=== PATIENT | female | born 1975 | race Caucasian/White ===

== ENCOUNTER 2017-03-05 21:03 | Emergency (ER) | payer MEDICAID ==
[~2017-03-05] VITALS: Ht 160 cm; Wt 74.8 kg
[2017-03-05 22:06] LABS: BILIRUBIN,URINE NEGATIVE (NEG); GLUCOSE,URINE NEGATIVE (NEG); NITRITE,URINE NEGATIVE (NEG); PROTEIN,URINE NEGATIVE (NEG-TRACE)
[2017-03-05 22:15] LABS: BACTERIA,URINE MOD /HPF (0-FEW); RBC,URINE 0 /HPF (0-2); SQUAMOUS EPITHELIAL CELL,UR MANY /LPF
[2017-03-05] MEDS ORDERED: IV NORMAL SALINE 1000ML BAG 1,000 ML IV SCH (22:15)
[2017-03-05] MEDS ORDERED: fentaNYL PF VIAL 100 MCG/2 ML VIAL IV PRN (22:15)
[2017-03-05] MEDS ORDERED: ONDANSETRON PF 4 MG/2 ML VIAL. IV ONE (22:30)
[2017-03-05] MEDS ORDERED: HALOPERIDOL LACTATE 5 MG/ML VIAL. IVP ONE (22:30)
[2017-03-05 23:00] LABS: BASO # 0.1 x10^3/uL (0.0-0.2); BASO % 1 % (0-3); EOS % 2 % (0-3); HEMATOCRIT 42.6 % (36.0-47.0); HEMOGLOBIN 14.6 g/dL (12.0-15.5); LYMPH # 1.8 x10^3/uL (1.0-4.8); LYMPH % 22 % (24-48); MEAN CORPUSCULAR HEMOGLOBIN 32 pg (25-35); MEAN CORPUSCULAR HGB CONC 34 g/dL (31-37); MEAN CORPUSCULAR VOLUME 92 fL (79-100); MONO % 8 % (0-9); NEUT % 67 % (31-73); PLATELET COUNT 473 x10^3/uL (140-400); RED BLOOD COUNT 4.64 x10^6/uL (3.50-5.40); RED CELL DISTRIBUTION WIDTH 13.5 % (11.5-14.5)
[2017-03-05 23:08] LABS: CALCIUM 9.4 mg/dL (8.5-10.1); CREATININE 0.6 mg/dL (0.6-1.0); GFR 109.1; POTASSIUM 3.7 mmol/L (3.5-5.1)
[2017-03-05 23:14] LABS: ALBUMIN 3.4 g/dL (3.4-5.0); ALBUMIN/GLOBULIN RATIO 0.9 (1.0-1.7); TOTAL BILIRUBIN 0.6 mg/dL (0.2-1.0); TOTAL PROTEIN 7.2 g/dL (6.4-8.2)
[2017-03-05 23:38] LABS: BARBITURATES NEG (NEG); BENZODIAZEPINES NEG (NEG); CANNABINOIDS NEG (NEG); COCAINE NEG (NEG); METHADONE NEG (NEG); OPIATES POS (NEG); PHENCYCLIDINE NEG (NEG)
--- NOTE | 2017-03-06 00:01 | ED.ADGEN ---
Past Medical History Past Medical History: Bipolar, Hepatitis, Other Additional Past Medical Histor: hep c, onset schizophrenia, ptsd,dgd, osteoarthritis, back pain Past Surgical History: Hysterectomy, Other Additional Past Surgical Histo: back, carpal tunnel Alcohol Use: None Drug Use: None Adult General Chief Complaint Chief Complaint: MULTIPLE COMPLAINTS HPI HPI Patient is a 41 year old woman history of hepatitis C, schizophrenia, bipolar disorder, who presents to the emergency department with a complaint of abdominal pain, nausea and vomiting. Patient was evaluated at [facility] on 03/01 , and had an ultrasound and CT performed of the abdomen that were unremarkable, she then had a EGD performed today which did not reveal evidence of concerning findings. Per the paperwork the patient has with her in the ED, it was recommended the patient obtain a HIDA scan for additional evaluation for functional issues with her gallbladder, as no mechanical issues were identified. Patient states that she has been feeling persistently nauseous and complaining of abdominal cramping, denies any fevers or chills, any urinary complaints, any injuries, any focal weakness, numbness, tingling, rashes, swelling of the extremities. She states that she was trying to take the medications given to her by the GI doctor, including Haldol, and Zofran, with oxycodone without relief at home. Review of Systems Review of Systems Constitutional: Denies fever or chills. [] Eyes: Denies change in visual acuity. [] HENT: Denies nasal congestion or sore throat. [] Respiratory: Denies cough or shortness of breath. [] Cardiovascular: Denies chest pain or edema. [] GI: Cramping and sharp upper abdominal pain, nausea, vomiting, diarrhea, no bloody stools. : Denies dysuria. [] Musculoskeletal: Denies back pain or joint pain. [] Integument: Denies rash. [] Neurologic: Denies headache, focal weakness or sensory changes. [] Endocrine: Denies polyuria or polydipsia. [] Lymphatic: Denies swollen glands. [] Psychiatric: Denies depression or anxiety. [] Current Medications Current Medications Current Medications Medications (Trade) Dose Ordered Sig/Terrell Start Time Stop Time Status Last Admin Dose Admin Fentanyl Citrate (Fentanyl 2ml Vial) 50 mcg PRN Q15MIN PRN 03/05/17 22:15 03/06/17 22:14 03/05/17 22:43 50 MCG Haloperidol Lactate (Haldol) 5 mg 1X ONCE 03/05/17 22:30 03/05/17 22:31 DC 03/05/17 22:44 5 MG Ondansetron HCl (Zofran) 4 mg 1X ONCE 03/05/17 22:30 03/05/17 22:31 DC 03/05/17 22:44 4 MG Sodium Chloride 1,000 ml @ 1,000 mls/hr Q1H 03/05/17 22:15 03/05/17 23:14 DC 03/05/17 22:44 1,000 MLS/HR Allergies Allergies Allergies Coded Allergies Type Severity Reaction Last Updated Verified Penicillins Allergy Intermediate 03/05/17 Yes Sulfa (Sulfonamide Antibiotics) Allergy Intermediate 03/05/17 Yes acetaminophen Allergy Intermediate 03/05/17 Yes azithromycin Allergy Intermediate 03/05/17 Yes buspirone Allergy Intermediate 03/05/17 Yes hydrocodone Allergy Intermediate 03/05/17 Yes ibuprofen Allergy Intermediate 03/05/17 Yes ketorolac Allergy Intermediate 03/05/17 Yes lamotrigine Allergy Intermediate 03/05/17 Yes nitrofurantoin Allergy Intermediate 03/05/17 Yes tramadol Allergy Intermediate 03/05/17 Yes Physical Exam Physical Exam Constitutional: Well developed, well nourished, no acute distress, non-toxic appearance. [] HENT: Normocephalic, atraumatic, bilateral external ears normal, oropharynx moist, no oral exudates, nose normal. [] Eyes: PERRLA, EOMI, conjunctiva normal, no discharge. [] Neck: Normal range of motion, no tenderness, supple, no stridor. [] Cardiovascular:Heart rate regular rhythm, no murmur, S1, S2, no rubs or gallops. [] Lungs & Thorax: Bilateral breath sounds clear to auscultation, no wheezing, rhonchi, rales. No chest crepitus or tenderness. [] Abdomen: Bowel sounds normal, soft, mild tenderness to palpation in the epigastric region, no rebound, rigidity, no guarding, no masses, no pulsatile masses. [] Skin: Warm, dry, no erythema, no rash. [] Back: No tenderness, no CVA tenderness. [] Extremities: No tenderness, no cyanosis, no clubbing, ROM intact, no edema. Negative Homans sign. [] Neurologic: Alert and oriented X 3, normal motor function, normal sensory function, no focal deficits noted. [] Psychologic: Affect normal, judgement normal, mood normal. [] Current Patient Data Vital Signs Vital Signs Date Time Temp Pulse Resp B/P (MAP) Pulse Ox O2 Delivery O2 Flow Rate FiO2 03/05/17 22:43 18 96 Room Air 03/05/17 21:24 71 120/78 (92) Lab Values Laboratory Tests Test 03/05/17 21:42 03/05/17 22:40 Urine Collection Type Unknown Urine Color Noa Urine Clarity Cloudy Urine pH 6.0 Urine Specific [place] 1.020 Urine Protein Negative mg/dL (NEG-TRACE) Urine Glucose (UA) Negative mg/dL (NEG) Urine Ketones (Stick) Negative mg/dL (NEG) Urine Blood Negative (NEG) Urine Nitrite Negative (NEG) Urine Bilirubin Negative (NEG) Urine Urobilinogen Dipstick 1.0 mg/dL (0.2 mg/dL) Urine Leukocyte Esterase Small (NEG) Urine RBC 0 /HPF (0-2) Urine WBC 1-4 /HPF (0-4) Urine Squamous Epithelial Cells Many /LPF Urine Bacteria Mod /HPF (0-FEW) Urine Mucus Marked /LPF Urine Opiates Screen Pos (NEG) Urine Methadone Screen Neg (NEG) Urine Barbiturates Neg (NEG) Urine Phencyclidine Screen Neg (NEG) Urine Amphetamine/Methamphetamine Neg (NEG) Urine Benzodiazepines Screen Neg (NEG) Urine Cocaine Screen Neg (NEG) Urine Cannabinoids Screen Neg (NEG) Urine Ethyl Alcohol Neg (NEG) White Blood Count 8.0 x10^3/uL (4.0-11.0) Red Blood Count 4.64 x10^6/uL (3.50-5.40) Hemoglobin 14.6 g/dL (12.0-15.5) Hematocrit 42.6 % (36.0-47.0) Mean Corpuscular Volume 92 fL (79-100) Mean Corpuscular Hemoglobin 32 pg (25-35) Mean Corpuscular Hemoglobin Concent 34 g/dL (31-37) Red Cell Distribution Width 13.5 % (11.5-14.5) Platelet Count 473 x10^3/uL (140-400) H Neutrophils (%) (Auto) 67 % (31-73) Lymphocytes (%) (Auto) 22 % (24-48) L Monocytes (%) (Auto) 8 % (0-9) Eosinophils (%) (Auto) 2 % (0-3) Basophils (%) (Auto) 1 % (0-3) Neutrophils # (Auto) 5.3 x10^3uL (1.8-7.7) Lymphocytes # (Auto) 1.8 x10^3/uL (1.0-4.8) Monocytes # (Auto) 0.7 x10^3/uL (0.0-1.1) Eosinophils # (Auto) 0.2 x10^3/uL (0.0-0.7) Basophils # (Auto) 0.1 x10^3/uL (0.0-0.2) Sodium Level 140 mmol/L (136-145) Potassium Level 3.7 mmol/L (3.5-5.1) Chloride Level 103 mmol/L (98-107) Carbon Dioxide Level 29 mmol/L (21-32) Anion Gap 8 (6-14) Blood Urea Nitrogen 8 mg/dL (7-20) Creatinine 0.6 mg/dL (0.6-1.0) Estimated GFR (Cockcroft-Gault) 109.1 BUN/Creatinine Ratio 13 (6-20) Glucose Level 92 mg/dL (70-99) Calcium Level 9.4 mg/dL (8.5-10.1) Total Bilirubin 0.6 mg/dL (0.2-1.0) Aspartate Amino Transferase (AST) 47 U/L (15-37) H Alanine Aminotransferase (ALT) 67 U/L (14-59) H Alkaline Phosphatase 75 U/L (46-116) Total Protein 7.2 g/dL (6.4-8.2) Albumin 3.4 g/dL (3.4-5.0) Albumin/Globulin Ratio 0.9 (1.0-1.7) L Lipase 76 U/L (73-393) Laboratory Tests 03/05/17 22:40 Laboratory Tests 03/05/17 22:40 EKG EKG Not indicated. Radiology/Procedures Radiology/Procedures Acute abdominal series: 3 view: Normal cardiopulmonary silhouette, no infiltrates, no effusions, no pneumothorax, no free air, no bony or soft tissue abnormality identified. Patient was stool and bowel gas throughout, no evidence of obstruction, no air-fluid levels or other concerning findings. As interpreted by me. Course & Med Decision Making Course & Med Decision Making Pertinent Labs and Imaging studies reviewed. (See chart for details) As stated, patient has evidence of a thorough GI evaluation that was performed within the last several days at [facility], doubt identification of concerning findings. Due to patient's complaints, with upper GI that was performed today, obstruction series was obtained which showed no evidence of free air or other concerning findings, laboratory studies revealed mild elevations of LFTs, no prior for comparison, patient is a history of hepatitis C as stated, and no other concerning abnormalities were identified. Patient received Haldol, Zofran, IV fluids in the ED. She has not had any emesis since arrival in the ED, and is resting comfortably. On reevaluation, patient states that she is feeling better, I did discuss with her that we have not identified any new concerning findings, and that I do recommend she follows up with the GI physician for the HIDA scan and other recommended evaluation, and that she follow-up with the GI doctor that she has seen for continuity of care. Patient did voice understanding and agreement with this plan. She does have all medications as prescribed at home, states that she will continue to use as directed and return to the ED if any new or concerning symptoms develop. Patient discharged home in stable condition with family with plan as above. Dragon Disclaimer Dragon Disclaimer This electronic medical record was generated, in whole or in part, using a voice recognition dictation system. Departure Impression: Primary Impression: Abdominal pain Disposition: HOME, SELF-CARE Condition: IMPROVED DAVID GALVEZ DO Mar 06, 2017 00:01
[2017-03-06 00:15] VITALS: BP 105/62
--- NOTE | 2017-03-06 09:43 | RAD ---
Acute abdominal series to include a PA chest radiograph 03/05/2017 Clinical History: Epigastric pain and nausea and vomiting for one week. A PA digital radiograph of the chest was obtained. Supine and erect AP digital radiographs of the abdomen/pelvis were obtained. No previous studies are available for comparison. The cardiac and mediastinal silhouettes are within normal limits in size and configuration. No pulmonary infiltrate is seen. No pleural effusion or pneumothorax is noted. The abdominal bowel gas pattern is nonobstructive. A moderate amount of stool seen throughout the colon. There is no evidence of free air. No radiopaque calculus is seen.Calcifications are seen within the pelvis consistent with phleboliths. The osseous structures are grossly intact. Impression: Moderate amount of stool is seen throughout the colon. The abdominal bowel gas pattern is nonobstructive.
== END 2017-03-06 00:25 | disposition home or self-care (01) ==
LOC: ER 21:03
DX: R10.13 Epigastric pain (principal); R11.2 Nausea with vomiting, unspecified; F31.9 Bipolar disorder, unspecified; F20.9 Schizophrenia, unspecified; F43.10 Post-traumatic stress disorder, unspecified; M19.90 Unspecified osteoarthritis, unspecified site; Z90.710 Acquired absence of both cervix and uterus; Z86.19 Personal history of other infectious and parasitic diseases; Z88.0 Allergy status to penicillin; Z88.2 Allergy status to sulfonamides; Z88.1 Allergy status to other antibiotic agents; Z88.5 Allergy status to narcotic agent; Z88.6 Allergy status to analgesic agent; Z88.8 Allergy status to other drugs, medicaments and biological substances
CPT/HCPCS: 36415; 74022; 80053; 80307; 81001; 83690; 85025; 96361; 96374; 96375; 99285; J1630; J2405; J3010; J7030; G0479

== ENCOUNTER 2019-04-28 22:17 | Emergency (ER) | payer MEDICARE, OTHER ==
[~2019-04-28] VITALS: Ht 160 cm; Wt 62.6 kg
[2019-04-28 22:25] VITALS: BP 143/92
[2019-04-28] MEDS ORDERED: oxyCODONE IR 5 MG TABLET PO ONE (23:00)
--- NOTE | 2019-04-28 23:11 | PHYS DOC ---
Past Medical History Past Medical History: Bipolar, Hepatitis, Other Additional Past Medical Histor: hep c, onset schizophrenia, ptsd,dgd, osteoarthritis, back pain,"PSEUDOSEIZ (APOLINAR VENCES APRN) Past Surgical History: Hysterectomy, Other Additional Past Surgical Histo: back, carpal tunnel,BACK (APOLINAR VENCES APRN) Alcohol Use: None Drug Use: None (APOLINAR VENCES APRN) Adult General Chief Complaint Chief Complaint: WRIST PAIN HPI HPI Patient is a 43 year old female with hx of bipolar and arthritis who presents with 10 out of 10 pain along the left thumb that has been going on since January 2019 after she had surgery on her left thumb, she states she later was at [facility] a week post op. and a box of noodles fell on her left thumb . She states she followed up with her own hand surgeon who did an MRI last week, she states the MRI was negative. She states her hand surgeon informed her he will no longer take care of her hand, she needs to find a different hand surgeon. She is in the ED requesting pain medicine and asking questions about seeing another hand surgeon. Patient denies any new injuries. (APOLINAR VENCES APRN) Review of Systems Review of Systems Constitutional: Denies fever or chills [] Musculoskeletal: Reports pain along the left thumb Integument: Denies rash or skin lesions [] Neurologic: Denies headache, focal weakness or sensory changes [] All other systems were reviewed and found to be within normal limits, except as documented in this note. (APOLINAR VENCES APRN) Current Medications Current Medications Current Medications Medications (Trade) Dose Ordered Sig/Terrell Start Time Stop Time Status Last Admin Dose Admin Oxycodone HCl (Roxicodone) 5 mg 1X ONCE 04/28/19 23:00 04/28/19 23:01 DC 04/28/19 23:03 5 MG (DEMETRIO SHARMA MD) Allergies Allergies Allergies Coded Allergies Type Severity Reaction Last Updated Verified Penicillins Allergy Intermediate 03/05/17 Yes Sulfa (Sulfonamide Antibiotics) Allergy Intermediate 03/05/17 Yes acetaminophen Allergy Intermediate 03/05/17 Yes azithromycin Allergy Intermediate 03/05/17 Yes buspirone Allergy Intermediate 03/05/17 Yes hydrocodone Allergy Intermediate 03/05/17 Yes ibuprofen Allergy Intermediate 03/05/17 Yes ketorolac Allergy Intermediate 03/05/17 Yes lamotrigine Allergy Intermediate 03/05/17 Yes nitrofurantoin Allergy Intermediate 03/05/17 Yes tramadol Allergy Intermediate 03/05/17 Yes (DEMETRIO SHARMA MD) Physical Exam Physical Exam Constitutional: Well developed, well nourished, no acute distress, non-toxic appearance. [] Skin: Warm, dry, no erythema, no rash. [] Back: No tenderness, no CVA tenderness. [] Extremities: Left thumb with no edema, no ecchymosis, patient will not tolerate any range of motion to the left thumb. She states the surgeon destroyed her left thumb. Adequate radial sensation to the left thumb. +2 left radial pulse Neurologic: Alert and oriented X 3, normal motor function, normal sensory function, no focal deficits noted. [] Psychologic: Affect normal, judgement normal, mood normal. [] (APOLINAR VENCES APRN) Current Patient Data Vital Signs Vital Signs Date Time Temp Pulse Resp B/P (MAP) Pulse Ox O2 Delivery O2 Flow Rate FiO2 04/28/19 23:03 98 Room Air 04/28/19 22:25 97.9 101 22 143/92 (109) 97.9 (DEMETRIO SHARMA MD) EKG EKG [] (APOLINAR VENCES APRN) Radiology/Procedures Radiology/Procedures [] (APOLINAR VENCES APRN) Course & Med Decision Making Course & Med Decision Making Pertinent Labs and Imaging studies reviewed. (See chart for details) This is a 43-year-old female patient who presents to the ED today with left thumb pain. Patient follows up with the hand surgeon who has informed patient he will no longer sit patient any more, she is requesting pain medicine as well as a hand surgeon. Informed patient she can follow-up with a hand surgeon of her own we do not have a hand surgeon in this hospital. Informed patient we will not give any pain medications to go home with, informed patient she needs to establish care with a specialist for pain management too or the hand surgeon. (APOLINAR VENCES APRN) Course & Med Decision Making Staff Physician Addendum: I was working in the ER during the course of this patient's visit. I was available for consultation as needed, but I was not directly involved in the care of this patient. (DEMETRIO SHARMA MD) Dragon Disclaimer Dragon Disclaimer This electronic medical record was generated, in whole or in part, using a voice recognition dictation system. (APOLINAR VENCES APRN) Departure Departure Impression: Primary Impression: Pain of left thumb Disposition: 01 HOME, SELF-CARE Condition: STABLE Referrals: NO PCP (PCP) Please look on line and find a hand surgeon of your choice Patient Instructions: Musculoskeletal Pain Additional Instructions: Please look on line and hand surgeon of your choice. APOLINAR VENCES APRN Apr 28, 2019 23:11 DEMETRIO SHARMA MD Apr 30, 2019 01:32
== END 2019-04-28 23:20 | disposition home or self-care (01) ==
LOC: ER 22:17
DX: M79.645 Pain in left finger(s) (principal); F31.9 Bipolar disorder, unspecified; M19.90 Unspecified osteoarthritis, unspecified site; Z90.710 Acquired absence of both cervix and uterus; Z88.0 Allergy status to penicillin; Z88.2 Allergy status to sulfonamides; Z88.6 Allergy status to analgesic agent; Z88.1 Allergy status to other antibiotic agents; Z88.5 Allergy status to narcotic agent; Z88.8 Allergy status to other drugs, medicaments and biological substances
CPT/HCPCS: 99282